=== PATIENT | male | born 1995 | race African-American/Black ===

== ENCOUNTER 2017-05-17 06:36 | Emergency (ER) | payer OTHER ==
[~2017-05-17] VITALS: Ht 172.7 cm; Wt 77.1 kg
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
== END 2017-05-17 08:50 | disposition home or self-care (01) ==
LOC: CED 06:36
DX: S76.012A Strain of muscle, fascia and tendon of left hip, initial encounter (principal); V49.50XA Passenger injured in collision with unspecified motor vehicles in traffic accident, initial encounter
CPT/HCPCS: 73502; 99284